=== PATIENT | female | born 1970 | race African-American/Black ===

== ENCOUNTER 2018-08-12 01:23 | Emergency (ER) | payer BC, OTHER ==
[2018-08-12] MEDS ORDERED: THIAMINE 200 MG/2 ML INJ ONE (02:21)
[2018-08-12] MEDS ORDERED: MULTIVITAMINS 10 ML VIAL (INJ) IV ONE (02:22)
[2018-08-12] MEDS ORDERED: FOLIC ACID 5 MG/ML VIAL ONE (02:23)
[2018-08-12] MEDS ORDERED: NA CHLORIDE 0.9% 1,000 ML ONE (02:23)
[2018-08-12 02:53] LABS: Absolute Lymphocytes (CBC) 2.5 K/uL (0.7-4.9); Absolute Monocytes 0.4 K/uL (0.1-1.3); Absolute Neutrophil 3.7 K/uL (1.8-8.0); Basophils % 0.5 % (0-1.3); Hematocrit 40.4 % (36.0-45.0); Lymphocytes % 37.4 % (15.3-44.8); MCH 31.4 pg (27.0-35.0); MCV 87.4 fL (80-100); MPV 7.5 fL (7.6-11.3); RBC Red Blood Cell Count 4.62 M/uL (3.86-4.86)
[2018-08-12 03:21] LABS: ALT/SGPT 28 U/L (12-78); AST/SGOT 21 U/L (15-37); Albumin 3.9 g/dL (3.4-5.0); Alkaline Phosphatase 16 U/L (45-117); BUN Blood Urea Nitrogen 16 mg/dL (7-18); Bicarbonate 25 mmol/L (21-32); Bilirubin Direct 0.1 mg/dL (0-0.2); Bilirubin Total 0.3 mg/dL (0.2-1.0); CKMB Creatine Kinase MB < 1.0 ng/mL (0.3-3.6); Creatine Phosphokinase 176 U/L (26-192); Glucose Level 113 mg/dL (74-106); Magnesium 1.9 mg/dL (1.8-2.4); Protein, Total 7.6 g/dL (6.4-8.2); Sodium Level 140 mmol/L (136-145); Troponin (Emerg Dept Use Only) < 0.02 ng/mL (0.0-0.045)
--- NOTE | 2018-08-12 03:27 | EDPHYS ---
Physician Documentation [facility] Name: Tati Paulino Age: 47 yrs Sex: Female : 1970 Arrival Date: 08/12/2018 Time: 01:24 Bed 14 Private MD: ED Physician Troy Sam HPI: 08/12 02:17 This 47 yrs old Black Female presents to ER via Ambulatory with complaints of Shoulder snw Pain. 02:17 The patient or guardian complains of decreased range of motion, pain, that is acute. snw right shoulder and right trapezius. Context: The problem was sustained at home, resulted from an unknown reason, The patient experiences decreased range of motion, when attempts to raise arm, The patient reports no obvious deformity. Onset: The symptoms/episode began/occurred suddenly. Associated signs and symptoms: Pertinent positives: tingling. Severity of symptoms: At their worst the symptoms were moderate. The patient has not experienced similar symptoms in the past. It is unknown whether or not the patient has recently seen a physician. 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 - Social history:: Smoking status: Patient/guardian denies using tobacco. - Ebola Screening: : Patient denies exposure to infectious person Patient denies travel to an Ebola-affected area in the 21 days before illness onset. ROS: 02:15 Constitutional: Negative for fever, chills, and weight loss, Eyes: Negative for injury, snw pain, redness, and discharge, ENT: Negative for injury, pain, and discharge, Neck: Negative for injury, pain, and swelling, Cardiovascular: Negative for chest pain, palpitations, and edema, Respiratory: Negative for shortness of breath, cough, wheezing, and pleuritic chest pain, Abdomen/GI: Negative for abdominal pain, diarrhea, and constipation, + nausea and vomiting on arrival to ED Back: Negative for injury and pain, : Negative for injury, bleeding, discharge, and swelling, Skin: Negative for injury, rash, and discoloration, Neuro: Negative for headache, weakness, numbness, tingling, and seizure. 02:15 MS/extremity: Positive for decreased range of motion, pain, of the right shoulder. Exam: 02:12 Constitutional: This is a well developed, well nourished patient who is awake, alert, snw and in no acute distress. Head/Face: Normocephalic, atraumatic. Eyes: Pupils equal round and reactive to light, extra-ocular motions intact. Lids and lashes normal. Conjunctiva and sclera are non-icteric and not injected. Cornea within normal limits. Periorbital areas with no swelling, redness, or edema. ENT: Nares patent. No nasal discharge, no septal abnormalities noted. Tympanic membranes are normal and external auditory canals are clear. Oropharynx with no redness, swelling, or masses, exudates, or evidence of obstruction, uvula midline. Mucous membranes moist. Neck: Trachea midline, no thyromegaly or masses palpated, and no cervical lymphadenopathy. Supple, full range of motion without nuchal rigidity, or vertebral point tenderness. No Meningismus. Chest/axilla: Normal chest wall appearance and motion. Nontender with no deformity. No lesions are appreciated. 02:12 Respiratory: Lungs have equal breath sounds bilaterally, clear to auscultation and percussion. No rales, rhonchi or wheezes noted. No increased work of breathing, no retractions or nasal flaring. Abdomen/GI: Soft, non-tender, with normal bowel sounds. No distension or tympany. No guarding or rebound. No evidence of tenderness throughout. Back: No spinal tenderness. No costovertebral tenderness. Full range of motion. Skin: Warm, dry with normal turgor. Normal color with no rashes, no lesions, and no evidence of cellulitis. Neuro: Awake and alert, GCS 15, oriented to person, place, time, and situation. Cranial nerves II-XII grossly intact. Motor strength 5/5 in all extremities. Sensory grossly intact. Cerebellar exam normal. Normal gait. Psych: Awake, alert, with orientation to person, place and time. Behavior, mood, and affect are within normal limits. 02:12 Cardiovascular: Rate: tachycardic, Rhythm: regular, Heart sounds: normal. 02:12 Musculoskeletal/extremity: Extremities: grossly normal except: noted in the right shoulder: decreased ROM, pain, tenderness. 02:12 Musculoskeletal/extremity: ROM: intact in all extremities, limited active range of motion due to pain, in the right shoulder, Circulation is intact in all extremities. Tingling of extremity. Vital Signs: 01:51 BP 129 / 82; Pulse 90; Resp 18; Temp 98.3; Pulse Ox 100% on R/A; Weight 81.65 kg; aa1 Height 6 ft. 0 in. (182.88 cm); Pain 10/10; 02:52 BP 129 / 82; Pulse 92; Resp 18; Pulse Ox 100% on R/A; aa1 03:43 BP 122 / 85; Pulse 97; Resp 16; Pulse Ox 100% on R/A; Pain 7/10; aa1 01:51 Body Mass Index 24.41 (81.65 kg, 182.88 cm) aa1 MDM: 01:56 Patient medically screened. snw 03:27 Data interpreted: Pulse oximetry:. Data interpreted: Pulse oximetry: on room air is 100 snw %. Interpretation: normal. Counseling: I had a detailed discussion with the patient and/or guardian regarding: the historical points, exam findings, and any diagnostic results supporting the discharge/admit diagnosis, the presence of at least one elevated blood pressure reading (>120/80) during this emergency department visit, lab results, radiology results, the need for outpatient follow up, to return to the emergency department if symptoms worsen or persist or if there are any questions or concerns that arise at home. Special discussion: I have referred the patient to see his PCP for further evaluation of high blood pressure. Based on the history and exam findings, there is no indication for further emergent testing or inpatient evaluation. I discussed with the patient/guardian the need to see the primary care provider for further evaluation of the symptoms. 03:28 Data reviewed: vital signs, nurses notes, lab test result(s), EKG, radiologic studies. w 08/12 02:01 Order name: Basic Metabolic Panel; Complete Time: 03:22 snw 08/12 02:01 Order name: CBC with Diff; Complete Time: 03:14 snw 08/12 02:01 Order name: Ckmb; Complete Time: 03:22 snw 08/12 02:01 Order name: CPK; Complete Time: 03:22 snw 08/12 02:01 Order name: LFT's; Complete Time: 03:22 08/12 02:01 Order name: Magnesium; Complete Time: 03:22 08/12 02:01 Order name: Troponin (emerg Dept Use Only); Complete Time: 03:22 08/12 02:01 Order name: XRAY Chest (1 view) snw 08/12 02:01 Order name: ETOH Level; Complete Time: 03:11 08/12 02:02 Order name: XRAY C Spine Ap/lat w 08/12 02:54 Order name: Urine Dipstick--Ancillary (enter results) ms 08/12 02:54 Order name: Urine --Ancillary (enter results) ms 08/12 02:01 Order name: EKG; Complete Time: 02:02 08/12 02:01 Order name: Cardiac monitoring; Complete Time: 02:22 08/12 02:01 Order name: EKG - Nurse/Tech; Complete Time: 02:22 08/12 02:01 Order name: IV Saline Lock; Complete Time: 02:59 08/12 02:01 Order name: Labs collected and sent; Complete Time: 03:00 08/12 02:01 Order name: O2 Per Protocol; Complete Time: 02:22 08/12 02:01 Order name: O2 Sat Monitoring; Complete Time: 02:22 08/12 02:01 Order name: Urine Dipstick-Ancillary (obtain specimen); Complete Time: 03:00 snw Administered Medications: 02:36 Drug: Banana Bag - (NS 0.9% 1000 ml, foLIC Acid 1 mg, Thiamine 100 mg, Multivitamin 1 aa1 amp) Route: IV; Rate: calculated rate; Site: right antecubital; 03:42 Follow up: IV Status: Completed infusion aa1 03:37 Drug: TORadol 30 mg Route: IVP; Site: right antecubital; aa1 03:42 Follow up: Response: No adverse reaction; Medication administered at discharge. aa1 Disposition: 08/12/18 03:26 Discharged to Home. Impression: Radiculopathy, cervical region. - Condition is Stable. - Discharge Instructions: Cervical Radiculopathy. - Prescriptions for Diclofenac Sodium 75 mg Oral Tablet Sustained Release - take 1 tablet by ORAL route 2 times per day; 30 tablet. orphenadrine citrate 100 mg Oral Tablet Sustained Release - take 1 tablet by ORAL route 2 times per day As needed; 20 tablet. - Medication Reconciliation Form, Thank You Letter, Antibiotic Education, Prescription Opioid Use form. - Follow up: Private Physician; When: 2 - 3 days; Reason: Recheck today's complaints, Continuance of care, Re-evaluation by your physician. Follow up: Emergency Department; When: As needed; Reason: Worsening of condition. Addendum: 08/13/2018 23:14 Co-signature as Attending Physician, Troy Sam MD. g s Signatures: Dispatcher [employer] EDMS Joyce Dahl RN RN aa1 Alyssa Lynch, SQL ETL DEVELOPER-C SQL ETL DEVELOPER-Csnw Troy Sam MD MD gs Corrections: (The following items were deleted from the chart) 08/12 03:46 03:26 08/12/2018 03:26 Discharged to Home. Impression: Radiculopathy, cervical region. aa1 Condition is Stable. Forms are Medication Reconciliation Form, Thank You Letter, Antibiotic Education, Prescription Opioid Use. Follow up: Private Physician; When: 2 - 3 days; Reason: Recheck today's complaints, Continuance of care, Re-evaluation by your physician. Follow up: Emergency Department; When: As needed; Reason: Worsening of condition. snw
--- NOTE | 2018-08-12 03:27 | ER ---
Nurse's Notes [facility] Name: Tati Paulino Age: 47 yrs Sex: Female : 1970 Arrival Date: 08/12/2018 Time: 01:24 Bed 14 Private MD: Diagnosis: Radiculopathy, cervical region Presentation: 08/12 01:51 Presenting complaint: Patient states: R shoulder pain which began earlier in the day aa1 and has become progressively worse. Reports pain is so bad that she is barely able to move her arm. Also reports that she is now vomiting as well. Denies SOB or CP. Transition of care: patient was not received from another setting of care. Onset of symptoms was August 11, 2018. Risk Assessment: Do you want to hurt yourself or someone else? Patient reports no desire to harm self or others. Initial Sepsis Screen: Does the patient meet any 2 criteria? No. Patient's initial sepsis screen is negative. Does the patient have a suspected source of infection? No. Patient's initial sepsis screen is negative. Care prior to arrival: None. 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 - Social history:: Smoking status: Patient/guardian denies using tobacco. - Ebola Screening: : Patient denies exposure to infectious person Patient denies travel to an Ebola-affected area in the 21 days before illness onset. Screenin:00 Abuse screen: Denies threats or abuse. Denies injuries from another. Nutritional aa1 screening: No deficits noted. Tuberculosis screening: No symptoms or risk factors identified. Fall Risk None identified. Assessment: 02:00 General: Appears in no apparent distress. uncomfortable, Behavior is calm, cooperative, aa1 appropriate for age. Pain: Complains of pain in right trapezius and right shoulder Pain currently is 10 out of 10 on a pain scale. Quality of pain is described as sharp, Is continuous. Neuro: Level of Consciousness is awake, alert, obeys commands, Oriented to person, place, time, situation, Moves all extremities. Speech is normal. Cardiovascular: Denies chest pain, diaphoresis, palpitations, shortness of breath, Heart tones S1 S2 present Capillary refill < 3 seconds Patient's skin is warm and dry. Rhythm is regular. Respiratory: Airway is patent Respiratory effort is even, unlabored, Respiratory pattern is regular, symmetrical. GI: Reports nausea, vomiting. : No signs and/or symptoms were reported regarding the genitourinary system. EENT: No signs and/or symptoms were reported regarding the EENT system. Derm: Skin is intact, is healthy with good turgor, Skin is pink, warm \T\ dry. Musculoskeletal: Circulation, motion, and sensation intact. Capillary refill < 3 seconds, Range of motion: limited in right shoulder. 03:43 Reassessment: Patient appears in no apparent distress at this time. Patient is alert, aa1 oriented x 3, equal unlabored respirations, skin warm/dry/pink. Discussed d/c \T\ f/u instructions with pt; denies questions or concerns at this time Patient states feeling better. Vital Signs: 01:51 BP 129 / 82; Pulse 90; Resp 18; Temp 98.3; Pulse Ox 100% on R/A; Weight 81.65 kg; aa1 Height 6 ft. 0 in. (182.88 cm); Pain 10/10; 02:52 BP 129 / 82; Pulse 92; Resp 18; Pulse Ox 100% on R/A; aa1 03:43 BP 122 / 85; Pulse 97; Resp 16; Pulse Ox 100% on R/A; Pain 7/10; aa1 01:51 Body Mass Index 24.41 (81.65 kg, 182.88 cm) aa1 ED Course: 01:24 Patient arrived in ED. am2 01:51 Arm band placed on right wrist. Patient placed in an exam room, on a stretcher. aa1 01:56 Alyssa Lynch FNP-C [facility]. snw 01:56 Troy Sam MD is Attending Physician. snw 02:00 Patient has correct armband on for positive identification. Placed in gown. Bed in low aa1 position. Call light in reach. lead setter on. Pulse ox on. NIBP on. 02:00 EKG done, by ED staff, reviewed by Troy Sam MD. aa1 02:07 Joyce Dahl, RN is Primary Nurse. aa1 02:10 Triage completed. aa1 02:35 Initial lab(s) drawn, by me, sent to lab. Urine collected: clean catch specimen, clear. aa1 Inserted saline lock: 20 gauge in right antecubital area, using aseptic technique. Blood collected. 02:39 X-ray completed. Patient tolerated procedure well. bb2 02:43 XRAY Chest (1 view) In Process Unspecified. EDMS 02:43 XRAY C Spine Ap/lat In Process Unspecified. EDMS 03:43 No provider procedures requiring assistance completed. IV discontinued, intact, aa1 bleeding controlled, No redness/swelling at site. Pressure dressing applied. Administered Medications: 02:36 Drug: Banana Bag - (NS 0.9% 1000 ml, foLIC Acid 1 mg, Thiamine 100 mg, Multivitamin 1 aa1 amp) Route: IV; Rate: calculated rate; Site: right antecubital; 03:42 Follow up: IV Status: Completed infusion aa1 03:37 Drug: TORadol 30 mg Route: IVP; Site: right antecubital; aa1 03:42 Follow up: Response: No adverse reaction; Medication administered at discharge. aa1 Outcome: 03:26 Discharge ordered by . snw 03:43 Discharged to home ambulatory. aa1 03:43 Condition: good 03:43 Discharge instructions given to patient, Instructed on discharge instructions, follow up and referral plans. medication usage, Demonstrated understanding of instructions, follow-up care, medications, Prescriptions given X 2. 03:46 Patient left the ED. aa1 Signatures: Dispatcher [employer] EDCA Joyce Dahl, RN RN aa1 Alyssa Lynch, PRESS WORKER HELPER-C PRESS WORKER HELPER-Viv Barr am2 Anat Felipe bb2
[2018-08-12 03:38] LABS: Urine Blood NEGATIVE (NEG); Urine Glucose NEGATIVE (NEG); Urine Protein NEGATIVE (NEG); Urine pH 5.5 (5.0-7.0)
[2018-08-12] MEDS ORDERED: KETOROLAC 30 MG/ML INJ ONE (03:42)
--- NOTE | 2018-08-12 07:52 | RAD REPORT ---
EXAM DESCRIPTION: RAD - C Spine Ap/Lat - 08/12/2018 2:43 am CLINICAL HISTORY: Neck pain and numbness FINDINGS: The alignment of the cervical spine is satisfactory. No fracture or dislocation is seen. Mild spondylosis involves mid and distal cervical spine
--- NOTE | 2018-08-12 09:37 | RAD REPORT ---
EXAM DESCRIPTION: Dean Single View08/12/2018 2:43 am CLINICAL HISTORY: Chest pain COMPARISON: 2010 FINDINGS: The lungs appear clear of acute infiltrate. The heart is normal size IMPRESSION: No acute abnormalities displayed
--- NOTE | 2018-08-12 12:09 | EKG ---
Test Date: 2018-08-12 Test Time: 02:00:54 Card Maker: JOSE RAFAEL MEASUREMENT RESULTS: Intervals: Rate: 101 SC: 144 QRSD: 96 QT: 344 QTc: 446 [place]: P: 74 SC: 144 QRS: 20 T: 50 INTERPRETIVE STATEMENTS: Sinus tachycardia Possible Left atrial enlargement Incomplete right bundle branch block Nonspecific T wave abnormality Abnormal ECG No previous ECG available for comparison Electronically Signed On 08-12-18 12:07:20 CDT by Luis Alfredo Ulloa
== END 2018-08-12 03:46 | disposition home or self-care (01) ==
LOC: ER 01:23
DX: M54.12 Radiculopathy, cervical region (principal)
CPT/HCPCS: 36415; 71045; 72040; 80048; 80076; 80320; 81003; 81025; 82550; 82553; 83735; 84484; 85025; 93005; 96365; 96375; 99284; J3411; J7030

== ENCOUNTER 2021-12-28 09:57 | Emergency (ER) | payer BC ==
[2021-12-28] MEDS ORDERED: dexAMETHasone 10 MG/ML VIAL ONE (12:40)
[2021-12-28] MEDS ORDERED: KETOROLAC 30 MG/ML INJ ONE (12:41)
--- NOTE | 2021-12-28 13:20 | ER ---
Nurse's Notes [facility] Name: Tati Paulino Age: 51 yrs Sex: Female : 1970 Arrival Date: 12/28/2021 Time: 09:59 Bed 9 Private MD: Diagnosis: Radiculopathy, lumbosacral region Presentation: 12/28 10:23 Chief complaint: Patient states: pt reports that she has had sciatica pain starting 6 back in September has an MRI order but hasnt been able to get an apt. states pain not getting better. Coronavirus screen: Vaccine status: Patient reports receiving the 2nd dose of the covid vaccine. Ebola Screen: Patient negative for fever greater than or equal to 101.5 degrees Fahrenheit, and additional compatible Ebola Virus Disease symptoms. Initial Sepsis Screen: Does the patient meet any 2 criteria? No. Patient's initial sepsis screen is negative. Does the patient have a suspected source of infection? No. Patient's initial sepsis screen is negative. Risk Assessment: Do you want to hurt yourself or someone else? Patient reports no desire to harm self or others. Onset of symptoms was September 28, 2022. 10:23 Method Of Arrival: Ambulatory [facility] 10:23 Acuity: OLGA LIDIA 4 6 Historical: - Allergies: 10:26 No Known Allergies; [facility] - Home Meds: 10:26 None [Active]; 6 - PMHx: 10:26 None; [facility] - Immunization history:: Client reports receiving the 2nd dose of the Covid vaccine. - Social history:: Smoking status: Patient denies any tobacco usage or history of. - Family history:: not pertinent. - Hospitalizations: : No recent hospitalization is reported. Screenin:43 Abuse screen: Denies threats or abuse. Denies injuries from another. Nutritional ld1 screening: No deficits noted. Tuberculosis screening: No symptoms or risk factors identified. Fall Risk None identified. Assessment: 12:43 General: Appears in no apparent distress. comfortable, Behavior is calm, cooperative, ld1 appropriate for age. Pain: Complains of pain in coccyx, left lower back and right lower back. Neuro: Level of Consciousness is awake, alert, obeys commands, Oriented to person, place, time, situation. Cardiovascular: Capillary refill < 3 seconds Patient's skin is warm and dry. Respiratory: Airway is patent Respiratory effort is even, unlabored, Respiratory pattern is regular, symmetrical. Vital Signs: 10:23 BP 145 / 103; Pulse 93; Resp 20; Temp 98.8; Pulse Ox 100% ; Weight 81.65 kg; Height 6 [facility] ft. 0 in. (182.88 cm); Pain 10/10; 12:43 BP 139 / 96; Pulse 95; Resp 18; Pulse Ox 100% on R/A; Pain 5/10; ld1 10:23 Body Mass Index 24.41 (81.65 kg, 182.88 cm) [facility] ED Course: 09:59 Patient arrived in ED. as 10:26 Triage completed. [facility] 12:05 Mo Mcclellan MD is Attending Physician. rn 12:38 Saundra Arshad, BETTY is Primary Nurse. [facility] 12:43 Patient has correct armband on for positive identification. Placed in gown. Bed in low ld1 position. Call light in reach. Side rails up X2. surveillance system monitor on. Pulse ox on. NIBP on. Door closed. Noise minimized. Warm blanket given. 12:43 No provider procedures requiring assistance completed. Patient did not have IV access ld1 during this emergency room visit. 13:45 Arm band placed on left wrist. ld1 Administered Medications: 12:42 Drug: Ketorolac 30 mg Route: IM; Site: left gluteus; ld1 12:42 Follow up: Response: No adverse reaction ld1 12:42 Drug: Decadron (dexamethasone) 10 mg Route: IM; Site: right gluteus; ld1 12:43 Follow up: Response: No adverse reaction ld1 Outcome: 13:20 Discharge ordered by . rn 13:45 Discharged to home ambulatory. ld1 13:45 Condition: stable 13:45 Discharge instructions given to patient, Instructed on discharge instructions, follow up and referral plans. medication usage, Demonstrated understanding of instructions, follow-up care, medications, Prescriptions given X 1. 13:45 Patient left the ED. ld1 Signatures: Pilar Tamez Roman, MD MD rn Dibbern, Lauren, RN RN ld1 Saundra Arshad RN RN 5 Ilana Grubbs RN RN 6
--- NOTE | 2021-12-28 13:21 | EDPHYS ---
Physician Documentation [facility] Name: Tati Paulino Age: 51 yrs Sex: Female : 1970 Arrival Date: 12/28/2021 Time: 09:59 Bed 9 Private MD: ED Physician Mo Mcclellan HPI: 12/28 13:15 This 51 yrs old Black Female presents to ER via Ambulatory with complaints of sciatica. rn 13:15 The patient presents with pain that is acute. The symptoms are located in the low back. rn The pain radiates to the right leg. Onset: The symptoms/episode began/occurred 1 month(s) ago. Modifying factors: The patient symptoms are alleviated by nothing, the patient symptoms are aggravated by any movement, bending, coughing, walking. Severity of symptoms: At their worst the symptoms were moderate, in the emergency department the symptoms are unchanged. The patient has not experienced similar symptoms in the past. The patient has been recently seen by a physician:. Patient reports at least 1 month of symptoms. Has been having lower back pain that radiates down the right leg, is burning sensation, and worse with movement/bending/coughing/sneezing. Denies trauma. Denies bowel or bladder issues. Is able to ambulate.. Historical: - Allergies: 10:26 No Known Allergies; [facility] - Home Meds: 10:26 None [Active]; [facility] - PMHx: 10:26 None; [facility] - Immunization history:: Client reports receiving the 2nd dose of the Covid vaccine. - Social history:: Smoking status: Patient denies any tobacco usage or history of. - Family history:: not pertinent. - Hospitalizations: : No recent hospitalization is reported. ROS: 13:15 Constitutional: Negative for fever, chills, and weight loss, Eyes: Negative for injury, rn pain, redness, and discharge, Cardiovascular: Negative for chest pain, palpitations, and edema, Respiratory: Negative for shortness of breath, cough, wheezing, and pleuritic chest pain, Abdomen/GI: Negative for abdominal pain, nausea, vomiting, diarrhea, and constipation, Back: Positive for right lower back pain : Negative for injury, bleeding, discharge, and swelling, MS/Extremity: Negative for injury and deformity, Skin: Negative for injury, rash, and discoloration, Neuro: Negative for headache, weakness, numbness, tingling, and seizure. Exam: 13:15 Constitutional: This is a well developed, well nourished patient who is awake, alert, rn and in no acute distress. Head/Face: Normocephalic, atraumatic. Cardiovascular: Regular rate and rhythm. No pulse deficits. Respiratory: No increased work of breathing, no retractions or nasal flaring. Back: No spinal tenderness. Skin: Warm, dry with normal turgor. Normal color with no rashes, no lesions, and no evidence of cellulitis. MS/ Extremity: Pulses equal, no cyanosis. Neurovascular intact. Full, normal range of motion. Equal circumference. Neuro: Awake and alert, GCS 15. Normal gait. Vital Signs: 10:23 BP 145 / 103; Pulse 93; Resp 20; Temp 98.8; Pulse Ox 100% ; Weight 81.65 kg; Height 6 jh6 ft. 0 in. (182.88 cm); Pain 10/10; 12:43 BP 139 / 96; Pulse 95; Resp 18; Pulse Ox 100% on R/A; Pain 5/10; ld1 10:23 Body Mass Index 24.41 (81.65 kg, 182.88 cm) jh6 MDM: 12:05 Patient medically screened. rn 13:15 Differential diagnosis: strain, sciatica, Herniated disc. Data reviewed: vital signs, rn nurses notes, and as a result, I will discharge patient. Counseling: I had a detailed discussion with the patient and/or guardian regarding: the historical points, exam findings, and any diagnostic results supporting the discharge/admit diagnosis, the need for outpatient follow up, to return to the emergency department if symptoms worsen or persist or if there are any questions or concerns that arise at home. Special discussion: I discussed with the patient/guardian in detail that at this point there is no indication for admission to the hospital. It is understood, however, that if the symptoms persist or worsen the patient needs to return immediately for re-evaluation. Further emergent ED testing is not indicated at this point in time. I discussed with the patient/guardian in detail the need to arrange with the PCP or specialist further outpatient testing, MRI, Based on the history and exam findings, there is no indication for further emergent testing or inpatient evaluation. I discussed with the patient/guardian the need to see the back specialist for further evaluation of the symptoms. ED course: Patient reports has an outpatient order for MRI but unable to get it. Came here to try to get MRI. No indication for emergent imaging or signs of spinal cord compression. Will DC home with symptomatic treatment that she is taking currently with addition of steroids and return precautions. Administered Medications: 12:42 Drug: Ketorolac 30 mg Route: IM; Site: left gluteus; ld1 12:42 Follow up: Response: No adverse reaction ld1 12:42 Drug: Decadron (dexamethasone) 10 mg Route: IM; Site: right gluteus; ld1 12:43 Follow up: Response: No adverse reaction ld1 Disposition Summary: 12/28/21 13:20 Discharge Ordered Location: Home rn Problem: an ongoing problem rn Symptoms: have improved rn Condition: Stable rn Diagnosis - Radiculopathy, lumbosacral region rn Followup: rn - With: Private Physician - When: As needed - Reason: Recheck today's complaints, Re-evaluation by your physician Discharge Instructions: - Discharge Summary Sheet rn - Lumbosacral Radiculopathy rn Forms: - Medication Reconciliation Form rn - Thank You Letter rn - Antibiotic rn building - Prescription Opioid Use rn Prescriptions: - Medrol (Geoff) 4 mg Oral Tablets, Dose Pack - take 1 tablet by ORAL route as directed - follow package instructions; 1 rn packet; Refills: 0, Product Selection Permitted Signatures: Mo Mcclellan MD MD rn Dibbern, Lauren, RN RN ld1 Ilana Grubbs RN RN jh6
[2021-12-28 13:53] VITALS: TEMP 98.8; O2SAT 100
[2021-12-28 13:56] VITALS: BP 139/96
== END 2021-12-28 13:45 | disposition home or self-care (01) ==
LOC: ER 09:57
DX: M54.17 Radiculopathy, lumbosacral region (principal)
CPT/HCPCS: 96372; 99284; J1100